=== PATIENT | female | born 2000 | race Caucasian/White ===

== ENCOUNTER 2022-02-04 08:23 | Inpatient (IN) ==
[2022-02-04] MEDS ORDERED: ONDANSETRON 4 MG/2 ML VIAL IV PRN (08:47)
[2022-02-04] MEDS ORDERED: CARBOPROST TROMETHAMINE 250 MCG/ML AMP IM PRN (08:47)
[2022-02-04] MEDS ORDERED: OXYTOCIN/LR 20 UNIT/1,000 ML BAG IV ONE ×2 (08:47→18:12)
[2022-02-04] MEDS ORDERED: miSOPROStoL 200 MCG TABLET RECTAL PRN (08:47)
[2022-02-04] MEDS ORDERED: MEPERIDINE 50 MG/1 ML VIAL IV PRN (08:47)
[2022-02-04] MEDS ORDERED: TRANEXAMIC ACID 1,000 MG in SODIUM CHLORIDE 0.9% 100 ML IV PRN (08:47)
[2022-02-04] MEDS ORDERED: METHYLERGONOVINE 0.2 MG/1 ML AMP IM PRN (08:47)
[2022-02-04] MEDS ORDERED: BUTORPHANOL 2 MG/ML VIAL IV PRN (08:47)
[2022-02-04] MEDS ORDERED: LIDOCAINE 1% 50 ML VIAL MISC INJ ONE (08:47)
[2022-02-04] MEDS ORDERED: LACTATED RINGERS 1,000 ML IV ONE (08:50)
[2022-02-04] MEDS ORDERED: ePHEDrine 50 MG/ML VIAL IV PRN (08:50)
[2022-02-04] MEDS ORDERED: CITRIC ACID/SODIUM CITRATE 30 ML UDCUP PO ONE (08:50)
[2022-02-04] MEDS ORDERED: NALOXONE 0.4 MG/ML VIAL IV PRN (08:50)
[2022-02-04] MEDS ORDERED: FAMOTIDINE 20 MG/2 ML VIAL IV ONE (08:50)
[2022-02-04] MEDS ORDERED: LACTATED RINGERS 1,000 ML IV SCH (09:00)
[2022-02-04] MEDS ORDERED: fentaNYL 2 MCG/ROPIV 0.2% EPID 100 ML EPIDURAL SCH (09:00)
[2022-02-04 09:18] LABS: Basophils # 0.1 10*3/uL (0.0-0.2); Basophils % 0.2 % (0.0-0.8); Eosinophils # 0.1 10*3/uL (0.0-0.87); Eosinophils % 0.5 % (0.00-10.9); Hematocrit 38.2 VOL% (35.7-47.0); Hemoglobin 13.3 GM/DL (12.0-16.0); Immature Granulocytes % 1.4 %; Lymphocytes # 1.3 10*3/uL (1.4-4.0); Lymphocytes % 5.8 % (21.3-54.2); Mean Corpuscular HGB Conc 34.8 GM/DL (32-36); Mean Corpuscular Volume 89.9 FL (87-102); Mean Platelet Volume 9.5 FL (9.6-12.0); Monocytes # 1.3 10*3/uL (0.11-0.8); Monocytes % 5.9 % (1.7-12.7); Neutrophils % 86.2 % (38.7-73.9); Platelet Count 193 T/CUMM (130-400); Red Blood Count 4.25 MC/CUMM (3.8-5.5); Red Cell Distribution Width 13.2 % (9.3-17.3); White Blood Count 21.4 T/CUMM (4-12)
[2022-02-04] MEDS: OXYTOCIN/LR 20 UNIT/1,000 ML BAG IV SCH ×2 (09:30→18:04)
[2022-02-04 09:37] LABS: Alanine Aminotransferase 32 U/L (13-56); Albumin 2.5 G/DL (3.4-5.0); Alkaline Phosphatase 166 U/L (45-117); Aspartate Amino Transferase 17 U/L (0-37); Bilirubin,Total < 0.39 MG/DL (0.20-1.00); Blood Urea Nitrogen 5 MG/DL (7-18); Calcium 9.1 MG/DL (8.5-10.1); Carbon Dioxide 21 MMOL/L (21-32); Chloride 110 MMOL/L (98-107); Glucose 92 MG/DL (74-106); Osmolality,Calculated 273.5 MOS/KG (273-304); Potassium 3.8 MMOL/L (3.5-5.1); Sodium 139 MMOL/L (136-145); Total Protein 7.3 G/DL (6.4-8.2)
[2022-02-04 09:40] LABS: Band Neutrophils 1 % (0-10); Hypochromia Slight; Lymphocytes 5 % (20-55); Microcytosis Slight; Nucleated Red Blood Cells 1 /100 WBC (0-5); Platelet Estimate Adequate; Total Cells Counted 100
[2022-02-04 11:44] LABS: Bilirubin,Urine Negative (Negative); Blood, Urine Negative (Negative); Glucose,Urine (UA) Negative (Negative); Ketones,Urine Negative (Negative); Mucus,Urine Moderate /LPF (Occasional); Nitrite,Urine Negative (Negative); Protein,Urine Negative (Negative); RBC,Urine 2 /HPF (0-4); Squamous Epithelial Cell,Urine Occasional /HPF (0-10); Urine Appearance CLEAR (Clear); Urine Color Yellow (Yellow); Urine Specific Gravity 1.014 (1.001-1.035); Urine Urobilinogen < 2.0 eU/dL (<2.0)
[2022-02-04 16:39] LABS: Cord Venous Blood HCO3 21.7 MMOL/L; Cord Venous Blood PCO2 42.2 MMHG; Cord Venous Blood PO2 34.3
[2022-02-04] MEDS ORDERED: oxyCODONE/ACETAMINOPHEN 5-325 MG TABLET PO PRN (18:12)
[2022-02-04] MEDS ORDERED: BISACODYL 10 MG SUPP RECTAL PRN (18:12)
[2022-02-04] MEDS ORDERED: WITCH HAZEL PADS 100/JAR TOP PRN (18:12)
[2022-02-04] MEDS ORDERED: LANOLIN 50% CREAM 0.3 OZ TUBE TOP PRN (18:12)
[2022-02-04] MEDS ORDERED: IBUPROFEN 800 MG TABLET PO PRN (18:12)
[2022-02-04] MEDS ORDERED: HYDROCORTISONE 2.5% RECTAL CREAM 30 GM TUBE TOP PRN (18:12)
[2022-02-04] MEDS ORDERED: ACETAMINOPHEN 325 MG TABLET PO PRN (18:12)
[2022-02-04] MEDS ORDERED: RHO(D) IMMUNE GLOBULIN 300 MCG SYRINGE IM ONE (18:12)
[2022-02-04] MEDS ORDERED: MEASLES/MUMPS/RUBELLA VACCINE 0.5 ML VIAL SUBCUT ONE (18:12)
[2022-02-04] MEDS ORDERED: DIPH/TET/ACEL PERT BOOSTER VACCINE 0.5 ML VIAL IM ONE (18:12)
[2022-02-04 19:18] LABS: Hematocrit 31.5 VOL% (35.7-47.0); Hemoglobin 10.5 GM/DL (12.0-16.0)
[2022-02-04] MEDS: oxyCODONE/ACETAMINOPHEN 5-325 MG TABLET PO PRN (20:49)
[2022-02-04] MEDS: BENZOCAINE 20%/MENTHOL 0.5% SPRAY 56 GM CAN TOP PRN (20:49)
[2022-02-04] MEDS: DOCUSATE SODIUM 100 MG CAPSULE PO SCH (20:50)
[2022-02-05 06:10] LABS: Basophils % 0.2 % (0.0-0.8); Eosinophils # 0.1 10*3/uL (0.0-0.87); Eosinophils % 0.2 % (0.00-10.9); Hematocrit 28.6 VOL% (35.7-47.0); Hemoglobin 9.5 GM/DL (12.0-16.0); Immature Granulocytes % 1.3 %; Immature Granulocytes Absolute 0.26 #; Lymphocytes # 1.6 10*3/uL (1.4-4.0); Lymphocytes % 7.9 % (21.3-54.2); Mean Corpuscular HGB Conc 33.2 GM/DL (32-36); Mean Corpuscular Volume 92.6 FL (87-102); Mean Platelet Volume 9.6 FL (9.6-12.0); Monocytes # 1.3 10*3/uL (0.11-0.8); Monocytes % 6.2 % (1.7-12.7); Neutrophils % 84.2 % (38.7-73.9); Platelet Count 200 T/CUMM (130-400); Red Blood Count 3.09 MC/CUMM (3.8-5.5); Red Cell Distribution Width 13.5 % (9.3-17.3); White Blood Count 20.7 T/CUMM (4-12)
[2022-02-05 06:35] LABS: Band Neutrophils 1 % (0-10); Eosinophils 1 % (0-10); Hypochromia Slight; Lymphocytes 8 % (20-55); Microcytosis Slight; Platelet Estimate Adequate; Total Cells Counted 100
[2022-02-05] MEDS: DOCUSATE SODIUM 100 MG CAPSULE PO SCH ×2 (10:16→21:26)
[2022-02-05] MEDS: oxyCODONE/ACETAMINOPHEN 5-325 MG TABLET PO PRN ×2 (10:19→21:30)
[2022-02-06] MEDS: BENZOCAINE 20%/MENTHOL 0.5% SPRAY 56 GM CAN TOP PRN (04:19)
[2022-02-06 10:20] VITALS: BP 114/71
[2022-02-06] MEDS: DOCUSATE SODIUM 100 MG CAPSULE PO SCH (11:00)
== END 2022-02-06 13:00 | disposition home or self-care (01) | DRG 560 ==
LOC: N.LD 08:23 → N.OB 18:12
PROVIDERS: ADMIT Obstetrics & Gynecology; ATTEND Obstetrics & Gynecology